=== PATIENT | female | born 1995 | race Hispanic/Latino ===

== ENCOUNTER → 2023-04-11 | Emergency (ER) | payer BC ==
[~2023-04-11] MED LIST: ACETAMINOPHEN 325 MG TABLET ONE; HYDROCODONE/APAP 5/325 MG TAB ONE; NA CHLORIDE 0.9% 1,000 ML ONE
--- OUTSIDE RECORDS SUMMARY | 2023-04-11 20:24 | XMS REPORT | Continuity of Care Document ---
Author Name Unknown Address [address] [place] [address] 1 [address] [place] [id number] [facility] Address [address] [place] [address] [address] [place] [address] Care Team Providers Care Bar Porter Name Role Phone [email or web address]_Kadiyala_S Attending Clinician Unavaila ble GC_GCBZW_Kadiyala_S Admitting Clinician Unavaila ble Payers Payer Name Policy Type Policy Number Effective Date Expirati on Date Source [facility]: ERNIE LIMA [id number] Encounters Start Date/Time End Date/Time Encounter Type Admission Type Attending Clinicians Care Facility Care Department Encounter ID Source 2023-03-18 00:00:00 2023-03-18 00:00:00 Outpatient GC_GCBZW_Ka diyala_S PRIV PRIV [id number] [facility] 2022-11-14 00:00:00 2022-11-14 00:00:00 Outpatient GC_GCBZW_Ka diyala_S PRIV PRIV [id number] [facility] 2022-11-14 00:00:00 2022-11-14 00:00:00 Outpatient GC_GCBZW_Ka diyala_S PRIV PRIV [id number] [facility] 2022-11-14 00:00:00 2022-11-14 00:00:00 Outpatient GC_GCBZW_Ka diyala_S PRIV PRIV [id number] [facility] 2022-11-14 00:00:00 2022-11-14 00:00:00 Outpatient GC_GCBZW_Ka diyala_S PRIV PRIV [id number] [facility] 2022-11-13 00:00:00 2022-11-13 00:00:00 Outpatient GC_GCBZW_Ka diyala_S PRIV PRIV [id number] [facility] 2022-10-31 00:00:00 2022-10-31 00:00:00 Outpatient GC_GCBZW_Ka diyala_S PRIV PRIV [id number] [facility]
[2023-04-11 20:52] LABS: Absolute Lymphocytes (CBC) 1.5 K/uL (0.7-4.9); Lymphocytes % 12.5 % (15.3-44.8); MCV 77.2 fL (80-100); MPV 8.1 fL (7.6-11.3); Platelets 234 thou/uL (152-406)
[2023-04-11 21:03] LABS: Specific Gravity 1.038 (1.005-1.030)
[2023-04-11 21:09] LABS: SARS-CoV-2 Antigen Rapid Res Negative (Negative)
[2023-04-11 21:11] LABS: Specific Gravity > 1.030 (1.005-1.030); Urine Bacteria <20 /HPF (<20); Urine Bilirubin NEGATIVE (Negative); Urine Blood 3+ (OVER) (Negative); Urine Clarity Extremely Turbid (Clear); Urine Color Yellow (Yellow); Urine Glucose NEGATIVE (Negative); Urine Mucus Slight /HPF (None Seen); Urine Protein 1+ (Negative); Urine RBC >50 /HPF (None Seen); Urine Urobilinogen Normal (Normal); Urine pH 5.5 (5.0-7.0)
[2023-04-11 21:20] LABS: Potassium 3.6 mEq/L (3.5-5.1)
[2023-04-11 21:45] LABS: Thyroid Stimulating Hormone 1.2 uIU/mL (0.358-3.740)
--- NOTE | 2023-04-11 22:14 | RAD REPORT ---
EXAM DESCRIPTION: CT - Abdomen Pelvis W Contrast - 04/11/2023 9:44 pm CLINICAL HISTORY: Abdominal pain COMPARISON: none. TECHNIQUE: Computed axial tomography of the abdomen pelvis was obtained. 100 cc Isovue-300 was admin istered intravenously. Oral contrast was not requested which limits evaluation of bowel and appendix All CT scans are performed using dose optimization technique as appropriate and may include automated exposure control or mA/KV adjustment according to patient size. FINDINGS: The liver, spleen, pancreas, adrenal and kidneys appear unremarkable. There is no evidence of diverticulitis. Normal appendix. Endometrial stripe does not appear thickened IMPRESSION: No acute abnormality is displayed.
--- NOTE | 2023-04-11 23:25 | ER ---
Nurse's Notes [facility] Name: Bobbi Reynolds Age: 27 yrs Sex: Female : 1995 Arrival Date: 04/11/2023 Time: 20:19 Bed 4 Private MD: Diagnosis: Abnormal uterine and vaginal bleeding, unspecified;Polycystic ovarian syndrome;Syncope Near Presentation: 04/11 20:35 Chief complaint: EMS states: tone out for vaginal bleeding for 3 weeks, near syncopal km8 episode, nausea, and migraine; pt has hx of PCOS. Coronavirus screen: Client denies travel out of the [place] in the last 14 days. Ebola Screen: No symptoms or risks identified at this time. Initial Sepsis Screen: Does the patient meet any 2 criteria? HR > 90 bpm. No. Patient's initial sepsis screen is negative. Does the patient have a suspected source of infection? No. Patient's initial sepsis screen is negative. Risk Assessment: Do you want to hurt yourself or someone else? Patient reports no desire to harm self or others. Onset of symptoms is unknown. 20:35 Method Of Arrival: EMS: [facility] km8 20:35 Acuity: LETHA 3 km8 Triage Assessment: 20:38 General: Appears in no apparent distress. comfortable, Behavior is calm, cooperative, km8 appropriate for age. Pain: Complains of pain in head and ABD Pain currently is 5 out of 10 on a pain scale. EENT: No signs and/or symptoms were reported regarding the EENT system. Neuro: Level of Consciousness is awake, alert, obeys commands, Oriented to person, place, time, situation, Reports headache. Cardiovascular: Denies chest pain, shortness of breath, Capillary refill < 3 seconds Patient's skin is warm and dry. Respiratory: Airway is patent Respiratory effort is even, unlabored, Respiratory pattern is regular, symmetrical. GI: Abdomen is obese, Reports cramping, nausea. : Reports vaginal bleeding that is heavy flow since 3 weeks. Derm: Skin is intact, Skin is dry, Skin is pink, warm \T\ dry. normal, Skin temperature is warm. Musculoskeletal: Range of motion: intact in all extremities. 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 - Social history:: Smoking status: Patient denies any tobacco usage or history of. Screenin:42 [facility] ED Fall Risk Assessment (Adult) History of falling in the last 3 months, km8 including since admission No falls in past 3 months (0 pts) Confusion or Disorientation No (0 pts) Intoxicated or Sedated No (0 pts) Impaired Gait No (0 pts) Mobility Assist Device Used No (0 pt) Altered Elimination No (0 pt) Score/Fall Risk Level 0 - 2 = Low Risk Oriented to surroundings, Maintained a safe environment, Educated pt \T\ family on fall prevention, incl call for assistance when getting out of bed, Assessed \T\ reinforced patient's understanding of fall precautions. Abuse screen: Denies threats or abuse. Denies injuries from another. Nutritional screening: No deficits noted. Tuberculosis screening: No symptoms or risk factors identified. Assessment: 20:42 General: see triage notes/assessment. km8 21:27 Reassessment: Patient appears in no apparent distress at this time. Patient and/or jb4 family updated on plan of care and expected duration. Pain level reassessed. Patient is alert, oriented x 3, equal unlabored respirations, skin warm/dry/pink. 23:39 Reassessment: Patient appears in no apparent distress at this time. Patient and/or jb4 family updated on plan of care and expected duration. Pain level reassessed. Patient is alert, oriented x 3, equal unlabored respirations, skin warm/dry/pink. D/c pending completion of IV fluids. 04/12 00:13 Reassessment: Patient appears in no apparent distress at this time. Patient and/or jb4 family updated on plan of care and expected duration. Pain level reassessed. Patient is alert, oriented x 3, equal unlabored respirations, skin warm/dry/pink. Vital Signs: 04/11 20:35 BP 145 / 79; Pulse 111; Resp 15; Temp 99.2(O); Pulse Ox 99% on R/A; Weight 115.67 kg km8 (R); Height 5 ft. 5 in. ; Pain 5/10; 21:27 BP 132 / 88; Pulse 104; Resp 16; Pulse Ox 98% on R/A; jb4 04/12 00:13 BP 140 / 69; Pulse 89; Resp 16; Pulse Ox 98% on R/A; jb4 04/11 20:35 Body Mass Index 42.43 (115.67 kg, 165.1 cm) km8 04/11 20:35 Pain Scale: Adult km8 [place] Coma Score: 04/11 20:42 Eye Response: spontaneous(4). Motor Response: obeys commands(6). Verbal Response: km8 oriented(5). Total: 15. ED Course: 20:33 Patient arrived in ED. sb4 20:34 Aury Suarez PA-C is PHCP. sb4 20:34 Ev Newby is Attending Physician. sb4 20:38 Triage completed. km8 20:38 Arm band placed on right wrist. km8 20:42 Patient has correct armband on for positive identification. Bed in low position. Call km8 light in reach. Side rails up X2. Client placed on continuous cardiac and pulse oximetry monitoring. NIBP monitoring applied. Door closed. Lights dimmed. Warm blanket given. 20:42 Maintain EMS IV. Dressing intact. Good blood return noted. Site clean \T\ dry. Gauge \T\ km 8 site: 20 gauge right forearm. Patient maintains SpO2 saturation greater than 95% on room air. 21:20 Fred Dunn, RN is Primary Nurse. jb4 21:46 CT Abd/Pelvis - IV Contrast Only In Process Unspecified. EDMS 04/12 00:13 No provider procedures requiring assistance completed. IV discontinued, intact, jb4 bleeding controlled, No redness/swelling at site. Pressure dressing applied. Administered Medications: 04/11 21:20 Drug: NS 0.9% IV 1000 ml IV at 1 bolus Per protocol; 1000 mL bolus Route: IV; Rate: 1 jb4 bolus; Site: right antecubital; 22:26 CANCELLED (Other Intervention Used): [id number] mg PO once sb4 23:13 Drug: HYDROcodone-acetaminophen PO 5 mg-325 mg 1 tabs PO once Route: PO; jb4 23:13 Drug: Acetaminophen PO 650 mg PO once Route: PO; jb4 Medication: 20:42 VIS not applicable for this client. km8 Outcome: 23:24 Discharge ordered by . sb4 04/12 00:13 Discharged to home ambulatory, jb4 Condition: stable Discharge instructions given to patient, Instructed on discharge instructions, follow up and referral plans. Demonstrated understanding of instructions, follow-up care, 00:15 Patient left the ED. jb4 Signatures: Dispatcher [employer] EDMS Fred Dunn RN RN jb4 Aury Suarez, PA-C PA-C [email or web address] Theresa Blum RN RN km8 Corrections: (The following items were deleted from the chart) 04/11 20:43 20:38 GI: No signs and/or symptoms were reported involving the gastrointestinal system. km8 km8
--- NOTE | 2023-04-11 23:25 | EDPHYS ---
Physician Documentation [facility] Name: Bobbi Reynolds Age: 27 yrs Sex: Female : 1995 Arrival Date: 04/11/2023 Time: 20:19 Bed 4 Private MD: ED Physician Ev Newby HPI: 04/11 20:54 This 27 yrs old Female presents to ER via EMS with complaints of vaginal sb4 bleeding, near syncope. 22:06 patient states she has been experiencing heavy vaginal bleeding for 3 weeks now. she sb4 was feeling malaise today, apparently later started feeling dizziness with a migraine and almost passed out. EMS was called and she was brought here. she is somewhat lethargic during my examination. endorses mild lower abdominal pain but no other associated signs and symptoms. 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 - Social history:: Smoking status: Patient denies any tobacco usage or history of. ROS: 22:06 Positive for vaginal bleeding, menstrual abnormality, sb4 22:06 Constitutional: Negative for fever, chills, and weight loss, 22:06 Neuro: Positive for dizziness, near syncope, 22:06 All other systems are negative, Exam: 22:06 Constitutional: This is a well developed, well nourished patient who is awake, alert, sb4 and in no acute distress. Head/Face: Normocephalic, atraumatic. Eyes: Extra-ocular motions intact. Periorbital areas with no swelling, redness, or edema. ENT: Mucous membranes moist. Cardiovascular: Regular rate and rhythm with a normal S1 and S2. Respiratory: Lungs have equal breath sounds bilaterally, clear to auscultation and percussion. No rales, rhonchi or wheezes noted. No increased work of breathing, no retractions or nasal flaring. Abdomen/GI: Soft, non-tender, no distension. Skin: Warm, dry with normal turgor. Normal color with no rashes, no lesions, and no evidence of cellulitis. MS/ Extremity: Pulses equal, no cyanosis. Neurovascular intact. Full, normal range of motion. Neuro: Awake and alert, GCS 15, oriented to person, place, time, and situation. Motor strength 5/5 in all extremities. Sensory grossly intact. Vital Signs: 20:35 BP 145 / 79; Pulse 111; Resp 15; Temp 99.2(O); Pulse Ox 99% on R/A; Weight 115.67 kg km8 (R); Height 5 ft. 5 in. ; Pain 5/10; 21:27 BP 132 / 88; Pulse 104; Resp 16; Pulse Ox 98% on R/A; jb4 04/12 00:13 BP 140 / 69; Pulse 89; Resp 16; Pulse Ox 98% on R/A; jb4 04/11 20:35 Body Mass Index 42.43 (115.67 kg, 165.1 cm) [facility] 04/11 20:35 Pain Scale: Adult km8 [place] Coma Score: 04/11 20:42 Eye Response: spontaneous(4). Motor Response: obeys commands(6). Verbal Response: km8 oriented(5). Total: 15. MDM: 20:34 Patient medically screened. sb4 22:31 Data reviewed: vital signs, nurses notes, lab test result(s), radiologic studies, and sb4 as a result, I will discharge patient. Test considered but Not performed: Ultrasound CT negative. Care significantly affected by the following chronic conditions: PCOS. Counseling: I had a detailed discussion with the patient and/or guardian regarding the historical points, exam findings, and any diagnostic results supporting the discharge/admit diagnosis, lab results, radiology results, the need for outpatient follow up, an OB/Gyne specialist, to return to the emergency department if symptoms worsen or persist or if there are any questions or concerns that arise at home. 04/11 20:34 Order name: Basic Metabolic Panel; Complete Time: 21:49 sb4 04/11 20:34 Order name: CBC with Diff; Complete Time: 20:59 sb4 04/11 20:34 Order name: Test, Urine; Complete Time: 21:03 sb4 04/11 20:34 Order name: UAM; Complete Time: 21:12 sb4 04/11 20:34 Order name: SARS RAPID; Complete Time: 21:59 sb4 04/11 20:34 Order name: Flu; Complete Time: 21:26 sb4 04/11 21:22 Order name: Thyroid Stimulating Hormone; Complete Time: 21:49 EDMS 04/11 20:34 Order name: CT Abd/Pelvis - IV Contrast Only; Complete Time: 22:21 sb4 04/11 20:34 Order name: IV Saline Lock; Complete Time: 20:44 sb4 04/11 20:34 Order name: Labs collected and sent; Complete Time: 20:44 sb4 04/11 22:26 Order name: Misc. Order: finish EMS fluids; Complete Time: 23:03 sb4 Administered Medications: 21:20 Drug: NS 0.9% IV 1000 ml IV at 1 bolus Per protocol; 1000 mL bolus Route: IV; Rate: 1 jb4 bolus; Site: right antecubital; 22:26 CANCELLED (Other Intervention Used): [id number] mg PO once sb4 23:13 Drug: HYDROcodone-acetaminophen PO 5 mg-325 mg 1 tabs PO once Route: PO; jb4 23:13 Drug: Acetaminophen PO 650 mg PO once Route: PO; jb4 Disposition: 04/12 07:24 Co-signature as Attending Physician, Ev Newby I reviewed the patient's care ci provided by the Advanced Practice Provider and agree with the diagnosis and treatment plan. Disposition Summary: 04/11/23 23:24 Discharge Ordered Notes: Location: Home sb4 Problem: new sb4 Symptoms: have improved sb4 Condition: Stable sb4 Diagnosis - Abnormal uterine and vaginal bleeding, unspecified sb4 - Polycystic ovarian syndrome sb4 - Syncope Near sb4 Followup: sb4 - With: Private Physician - When: 2 - 3 days - Reason: Further diagnostic work-up, Recheck today's complaints, Re-evaluation by your physician Discharge Instructions: - Discharge Summary Sheet sb4 - Near-Syncope sb4 - Polycystic Ovary Syndrome sb4 - Abnormal Uterine Bleeding, [id number] sb4 Forms: - Medication Reconciliation Form sb4 - Thank You Letter sb4 - Antibiotic Education sb4 - Prescription Opioid Use sb4 - Patient Portal Instructions sb4 - Leadership Thank You Letter sb4 Signatures: Dispatcher [employer] EDMS Fred Dunn, RN RN jb4 Aury Suarez PA-C PA-C sb4 IheonunekwuEv Katie, RN RN km8 Corrections: (The following items were deleted from the chart) 04/11 21:22 21:04 THYROID STIMULAT HORMONE+C.LAB.BRZ ordered. EDMS EDMS 22:26 22:25 Acetaminophen PO 1000 mg PO once ordered. sb4 sb4
[2023-04-12 02:32] VITALS: BP 140/69; TEMP 99.2; O2SAT 98
== END ==
LOC: ER 20:19
DX: N93.9 Abnormal uterine and vaginal bleeding, unspecified (principal); E28.2 Polycystic ovarian syndrome; Z11.52 Encounter for screening for COVID-19
CPT/HCPCS: 85025; 81001; 80048; 36415; 81025; 84443; 87804 ×2; 74177; 99285; 87811; Q9967; J7030